=== PATIENT | male | born 1985 | race Caucasian/White ===

== ENCOUNTER 2023-10-10 22:50 | Emergency (ER) | payer OTHER, SELFPAY ==
--- NOTE | 2023-10-10 22:54 | XRR_ITS ---
PROCEDURE INFORMATION: Exam: XR Chest Exam date and time: 10/10/2023 11:02 PM Age: 38 years old Clinical indication: Cough and fever; Patient HX: Cough with fever; Additional info: Cough, fever TECHNIQUE: Imaging protocol: Radiologic exam of the chest. Views: 1 view. COMPARISON: No relevant prior studies available. FINDINGS: Lungs: Unremarkable. No consolidation. Pleural spaces: Unremarkable. No pleural effusion. No pneumothorax. Heart/Mediastinum: Unremarkable. No cardiomegaly. Bones/joints: Unremarkable. XR/XR chest 1V portable [id number] IMPRESSION: No acute findings.
[2023-10-10 22:55] VITALS: BP 139/82; PULSE 94; RESP 16; TEMP 36.9; O2SAT 97; BMI 35.2
--- NOTE | 2023-10-10 23:09 | W.ED.FEVER ---
HPI - Fever General: Chief Complaint: Fever Stated Complaint: Aches\Fever\Conjested Time Seen by Provider: 10/10/23 22:54 History of Present Illness: 38-year-old male patient comes in today for complaints of bodyaches, coughing nasal congestion for 3 days. Patient appears nontoxic. Patient appears in mild pain. Patient moves all extremities well. Patient denies any chronic medical problems. Review of Systems General: Reports: 10 or more systems reviewed and unremarkable except in HPI and below Physical Exam Const: COMMON NORMALS: alert HENMT: COMMON NORMALS: normocephalic HEAD & SCALP: normocephalic Neck/C-Spine: COMMON NORMALS: full ROM Resp: COMMON NORMALS: normal respiratory effort and clear to auscultation bilaterally AUSCULTATION: clear to auscultation bilaterally Cardio: COMMON NORMALS: regular rate RATE: regular rate Back/Pelvis: COMMON NORMALS: thoracic and lumbar spine normal to inspection Extremity: COMMON NORMALS: normal to inspection Neuro: SENSORIUM/ORIENTATION: Yes alert Skin: COMMON NORMALS: turgor normal GENERAL SKIN EXAM: turgor normal Course Vital Signs: Vital signs: Vital Signs Temperature 98.4 F 10/10/23 22:55 Pulse Rate 94 10/10/23 22:55 Respiratory Rate 16 10/10/23 22:55 Blood Pressure 139/82 10/10/23 22:55 Pulse Oximetry 97 10/10/23 22:55 Oxygen Delivery Me thod Room Air 10/10/23 22:55 MDM - Fever Medical Decision Making 48-year-old male patient comes in today for complaints of cough and congestion with bodyaches for 3 days. On exam patient appears nontoxic. Respirations are even lungs are clear to auscultation. Skin is warm and dry. Vital signs are normal. Differential diagnosis includes but not limited to viral syndrome, influenza, COVID, pneumonia. X-ray shows no consolidation suggesting of pneumonia.COVID and flu test were negative. Reviewed exam with patient recommended treatment for viral syndrome and need for follow-up for worsening symptoms. Patient reported understanding and agreed to plan. Lab Data Laboratory Results Influenza Type A Ag negative (Negative) 10/10/23 23:04 Influenza Type B Ag negative (Negative) 10/10/23 23:04 SARS-CoV-2 Ag (Rapid) negative (Negative) 10/10/23 23:04 XR interpretation done by ED provider, pending radiology final review Discharge Plan Discharge Patient Disposition: Home Clinical Impression: Flu syndrome Condition: Stable Prescriptions: New hydrocodone-acetaminophen 5-325 mg tablet 1 tab PO Q8H PRN (Reason: pain) Qty: 5 0RF Discharge Orders: Discharge ED (Routine); Ordered 10/10/23 Ordered By: Nael Rodríguez Discharge Diet: Usual diet Discharge Activity: Increase activity as tolerated Patient Instructions: Viral Syndrome (ED) Activity Restrictions/Additional Instructions: Drink plenty of water and fluids. Activity as tolerated. Follow-up with primary care for further instructions. Return to ED for new concerns. Stand Alone Forms: Work/School Release Coding Level of Care Code ED Merchandise Handler for Jeff Mott
[2023-10-10 23:25] LABS: Influenza A by IFA negative (Negative); Influenza B by IFA negative (Negative); SARS Covid-2 Antigen negative (Negative)
[2023-10-10] MEDS: HYDROcodone-acetaminophen 5-325 mg Tablet 1 TAB PO (23:31)
[2023-10-10 23:37] VITALS: PULSE 89; RESP 15; O2SAT 97
== END 2023-10-10 23:37 | disposition home or self-care (01) ==
PROVIDERS: Emergency Provider Nurse Practitioner Family
DX: J11.1 Influenza due to unidentified influenza virus with other respiratory manifestations (principal); Z11.52 Encounter for screening for COVID-19
CPT/HCPCS: 71045; 87426; 87804; 99284

== ENCOUNTER → 2025-06-03 09:52 | Outpatient (BNVA) | payer OTHER, SELFPAY | PROVIDERS: PCP Family Medicine; Visit Provider Family Medicine | DX: E55.9 Vitamin D deficiency, unspecified (principal); Z51.81 Encounter for therapeutic drug level monitoring; Z13.1 Encounter for screening for diabetes mellitus; Z13.6 Encounter for screening for cardiovascular disorders | CPT/HCPCS: 80053; 80061; 82306; 83036; 85025 ==

== ENCOUNTER → 2025-06-10 07:05 | Outpatient (BNVA) | payer OTHER, SELFPAY | PROVIDERS: PCP Family Medicine; Visit Provider Podiatrist Foot & Ankle Surgery | DX: M79.671 Pain in right foot (principal); M25.571 Pain in right ankle and joints of right foot; M19.071 Primary osteoarthritis, right ankle and foot; M76.821 Posterior tibial tendinitis, right leg; R19.7 Diarrhea, unspecified | CPT/HCPCS: 73610; 73630; 87045; 87177; 87209; 87328; 87329; 87427; 87449; 87493 ==